=== PATIENT | male | born 1995 | race Caucasian/White ===

== ENCOUNTER 2017-09-06 09:41 | Emergency (ER) | payer OTHER ==
[~2017-09-06] VITALS: Ht 175.3 cm; Wt 74.4 kg
[2017-09-06] MEDS ORDERED: ERYTHROMYC1 APPLICAT BOTH EYES (11:32)
[2017-09-06 12:08] VITALS: BP 140/88
== END 2017-09-06 12:09 | disposition home or self-care (01) ==
LOC: EME 09:41
DX: T52.4X1A Toxic effect of ketones, accidental (unintentional), initial encounter (principal); H10.213 Acute toxic conjunctivitis, bilateral; Y99.0 Civilian activity done for income or pay; F17.210 Nicotine dependence, cigarettes, uncomplicated
CPT/HCPCS: 99281; 99283